=== PATIENT | male | born 1960 | race Two or more races ===

== ENCOUNTER 2024-06-25 16:46 | Emergency (ER) | payer MEDICAID, OTHER ==
[~2024-06-25] VITALS: Ht 167.6 cm; Wt 97.3 kg
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
[2024-06-25] MEDS: LIDOCAINE 1% HCL (LOCAL ANESTH.) INJ 20ML MDV ID ONE ×2 (21:00→23:35)
[2024-06-25] MEDS: ceFAZolin IM 1GM/2.5ML STERILE WATER IM ONE (21:00)
[2024-06-25] MEDS ORDERED: ACET-1304 PO (23:31)
[2024-06-25] MEDS ORDERED: BAC09TP TOP (23:31)
[2024-06-25] MEDS ORDERED: CEPH500C PO (23:31)
[2024-06-25] MEDS: ceFAZolin 1GM VL IM ONE (23:36)
[2024-06-25] MEDS: TETANUS-DIPTH-ACEL PERTUSSIS 0.5ML SYR Tdap IM ONE (23:40)
[2024-06-25 23:44] VITALS: BP 149/52; PULSE 98; RESP 18; TEMP 98; O2SAT 98
== END 2024-06-25 23:47 | disposition home or self-care (01) ==
LOC: ER 16:46
DX: S00.05XA Superficial foreign body of scalp, initial encounter (principal); I10 Essential (primary) hypertension; E11.9 Type 2 diabetes mellitus without complications; Z90.49 Acquired absence of other specified parts of digestive tract; Z98.890 Other specified postprocedural states; Z79.899 Other long term (current) drug therapy; W34.010A Accidental discharge of airgun, initial encounter; Y93.89 Activity, other specified; Y92.89 Other specified places as the place of occurrence of the external cause; Y99.8 Other external cause status
CPT/HCPCS: 10120; 70450; 90471; 90715; 96372; 99285; J0690; J2003